=== PATIENT | female | born 1995 | race Caucasian/White ===

== ENCOUNTER 2019-04-10 11:59 | Inpatient (IN) ==
[2019-04-10] MEDS ORDERED: ceFAZolin 2,000 MG in PREMIX 1 EACH IV ONE (12:54)
[2019-04-10] MEDS ORDERED: CITRIC ACID/SODIUM CITRATE 30 ML UDCUP PO ONE (12:54)
[2019-04-10] MEDS ORDERED: FAMOTIDINE 20 MG/2 ML VIAL IV ONE (12:54)
[2019-04-10] MEDS ORDERED: OXYTOCIN/LR 20 UNIT/1,000 ML BAG IV ONE (12:57)
[2019-04-10] MEDS ORDERED: LACTATED RINGERS 1,000 ML IV SCH (13:00)
[2019-04-10 13:22] LABS: Basophils % 0.2 % (0.0-0.8); Eosinophils # 0.1 10*3/uL (0.0-0.87); Eosinophils % 0.5 % (0.00-10.9); Hematocrit 38.6 VOL% (35.7-47.0); Hemoglobin 11.6 GM/DL (12.0-16.0); Immature Granulocytes % 0.7 %; Immature Granulocytes Absolute 0.08 #; Lymphocytes # 1.2 10*3/uL (1.4-4.0); Lymphocytes % 11.2 % (21.3-54.2); Mean Corpuscular HGB Conc 30.1 GM/DL (32-36); Mean Platelet Volume 11.4 FL (9.6-12.0); Monocytes % 9.5 % (1.7-12.7); Neutrophils % 77.9 % (38.7-73.9); Platelet Count 259 T/CUMM (130-400); Red Blood Count 4.65 MC/CUMM (3.8-5.5); Red Cell Distribution Width 22.5 % (9.3-17.3)
[2019-04-10 13:28] LABS: INR 0.9; PT Patient Result 9.5 SECS; Partial Thromboplastin Time 26.4 SECS (0-40)
[2019-04-10 13:42] LABS: Apearance,Urine Slightly Hazy (Clear); Bacteria,Urine Many /HPF (Few); Bilirubin,Urine Negative (Negative); Blood, Urine Negative (Negative); Glucose,Urine (UA) Negative (Negative); Ketones,Urine Negative (Negative); Mucus,Urine Occasional /LPF (Occasional); Nitrite,Urine Negative (Negative); Protein,Urine Negative; RBC,Urine 4 /HPF (0-4); Squamous Epithelial Cell,Urine Occasional /HPF (0-10); Urine Color Yellow (Yellow); Urine Specific Gravity 1.012 (1.001-1.035); Urine Urobilinogen < 2.0 EU/DL (0.2-1.0); WBC,Urine 11 /HPF (0-6)
[2019-04-10 13:52] LABS: Albumin 2.8 G/DL (3.4-5.0); Bilirubin,Total 0.4 MG/DL (0.2-1.0); Osmolality,Calculated 269.8 MOS/KG (273-304); Total Protein 6.8 G/DL (6.4-8.3)
[2019-04-10 14:04] LABS: Calcium 8.8 MG/DL (8.5-10.1)
[2019-04-11 06:15] LABS: Basophils % 0.3 % (0.0-0.8); Eosinophils # 0.1 10*3/uL (0.0-0.87); Eosinophils % 1.2 % (0.00-10.9); Hematocrit 41.8 VOL% (35.7-47.0); Hemoglobin 12.4 GM/DL (12.0-16.0); Immature Granulocytes % 0.9 %; Immature Granulocytes Absolute 0.11 #; Lymphocytes # 2.4 10*3/uL (1.4-4.0); Lymphocytes % 19.7 % (21.3-54.2); Mean Corpuscular HGB Conc 29.7 GM/DL (32-36); Mean Corpuscular Volume 84.4 FL (87-102); Mean Platelet Volume 11.6 FL (9.6-12.0); Monocytes % 11.3 % (1.7-12.7); Neutrophils % 66.6 % (38.7-73.9); Platelet Count 342 T/CUMM (130-400); Red Blood Count 4.95 MC/CUMM (3.8-5.5); Red Cell Distribution Width 23.1 % (9.3-17.3)
[2019-04-11 06:32] LABS: Anisocytosis 1+; Hypochromasia Slight; Platelet Estimate Adequate
[2019-04-11] MEDS ORDERED: TRANEXAMIC ACID 1,000 MG/10 ML VIAL ONE (07:15)
[2019-04-11] MEDS ORDERED: miSOPROStol 200 MCG TABLET ONE (07:15)
[2019-04-11] MEDS ORDERED: CARBOPROST TROMETHAMINE 250 MCG/ML AMP IM ONE (07:16)
[2019-04-11] MEDS ORDERED: METHYLERGONOVINE 0.2 MG/1 ML AMP ONE (07:16)
[2019-04-11] MEDS ORDERED: OXYTOCIN/LR 20 UNIT/1,000 ML BAG IV ONE ×3 (07:16→10:33)
[2019-04-11] MEDS ORDERED: FAMOTIDINE 20 MG/2 ML VIAL IV ONE (07:30)
[2019-04-11] MEDS ORDERED: ceFAZolin 2,000 MG in PREMIX 1 EACH IV ONE (07:30)
[2019-04-11] MEDS ORDERED: CITRIC ACID/SODIUM CITRATE 30 ML UDCUP PO ONE (07:30)
[2019-04-11] MEDS ORDERED: LACTATED RINGERS 1,000 ML IV ONE (07:49)
[2019-04-11] MEDS ORDERED: MEASLES/MUMPS/RUBELLA VACCINE 0.5 ML VIAL SUBCUT ONE (10:33)
[2019-04-11] MEDS ORDERED: LANOLIN 50% CREAM 0.3 OZ TUBE TOP PRN (10:33)
[2019-04-11] MEDS ORDERED: DIPH/TET/ACEL PERT BOOSTER VACCINE 0.5 ML VIAL IM ONE (10:33)
[2019-04-11] MEDS ORDERED: ONDANSETRON 4 MG/2 ML VIAL IV PRN (10:33)
[2019-04-11] MEDS ORDERED: HYDROCORTISONE 2.5% RECTAL CREAM 30 GM TUBE TOP PRN (10:33)
[2019-04-11] MEDS ORDERED: ACETAMINOPHEN 325 MG TABLET PO PRN (10:33)
[2019-04-11] MEDS ORDERED: WITCH HAZEL PADS 100/JAR TOP PRN (10:33)
[2019-04-11] MEDS ORDERED: BISACODYL 10 MG SUPP RECTAL PRN (10:33)
[2019-04-11] MEDS ORDERED: oxyCODONE/ACETAMINOPHEN 5-325 MG TABLET PO PRN (10:33)
[2019-04-11] MEDS ORDERED: BENZOCAINE 20%/MENTHOL 0.5% SPRAY 56 GM CAN TOP PRN (10:33)
[2019-04-11] MEDS ORDERED: RHO(D) IMMUNE GLOBULIN 300 MCG SYRINGE IM ONE (10:33)
[2019-04-11 10:35] LABS: Apearance,Urine CLEAR (Clear); Bilirubin,Urine Negative (Negative); Blood, Urine Negative (Negative); Glucose,Urine (UA) 50 mg/dL (Negative); Ketones,Urine Negative (Negative); Nitrite,Urine Negative (Negative); Protein,Urine Negative; Urine Color Straw (Yellow); Urine Specific Gravity 1.005 (1.001-1.035); Urine Urobilinogen < 2.0 EU/DL (0.2-1.0); WBC,Urine <1 /HPF (0-6)
[2019-04-11] MEDS: PROMETHAZINE 25 MG/1 ML VIAL IM PRN ×2 (11:23→19:40)
[2019-04-11] MEDS ORDERED: ROPIVACAINE 0.5% 30 ML VIAL ONE (11:25)
[2019-04-11] MEDS ORDERED: BUPIVACAINE SPINAL 0.75% 2 ML AMP SPINAL ONE (11:25)
[2019-04-11] MEDS ORDERED: MORPHINE 10 MG/10 ML VIAL ONE (11:26)
[2019-04-11] MEDS ORDERED: ONDANSETRON 4 MG/2 ML VIAL ONE (11:26)
[2019-04-11] MEDS ORDERED: DEXAMETHASONE 4 MG/1 ML VIAL ONE (11:26)
[2019-04-11] MEDS ORDERED: KETAMINE 500 MG/10 ML VIAL ONE (11:26)
[2019-04-11] MEDS ORDERED: MIDAZOLAM 2 MG/2 ML VIAL ONE (11:26)
[2019-04-11] MEDS ORDERED: PHENYLEPHRINE 1 MG/10 ML SYRINGE IV ONE (11:27)
[2019-04-11] MEDS ORDERED: amLODIPine 10 MG TABLET PO ONE (14:03)
[2019-04-11] MEDS: ceFAZolin 1,000 MG in SYRINGE 1 EACH IV SCH (18:24)
[2019-04-11] MEDS: LACTATED RINGERS 1,000 ML IV SCH ×2 (18:53→18:54)
[2019-04-12] MEDS: LACTATED RINGERS 1,000 ML IV SCH (00:49)
[2019-04-12] MEDS: ceFAZolin 1,000 MG in SYRINGE 1 EACH IV SCH (02:09)
[2019-04-12] MEDS: DOCUSATE SODIUM 100 MG CAPSULE PO SCH ×2 (02:39→21:21)
[2019-04-12 04:28] LABS: Basophils % 0.1 % (0.0-0.8); Eosinophils % 0.1 % (0.00-10.9); Hematocrit 26.9 VOL% (35.7-47.0); Hemoglobin 7.9 GM/DL (12.0-16.0); Immature Granulocytes % 0.7 %; Immature Granulocytes Absolute 0.08 #; Lymphocytes # 1.7 10*3/uL (1.4-4.0); Lymphocytes % 15.8 % (21.3-54.2); Mean Corpuscular HGB Conc 29.4 GM/DL (32-36); Mean Corpuscular Volume 85.7 FL (87-102); Mean Platelet Volume 10.6 FL (9.6-12.0); Monocytes % 11.6 % (1.7-12.7); Neutrophils % 71.7 % (38.7-73.9); Platelet Count 215 T/CUMM (130-400); Red Blood Count 3.14 MC/CUMM (3.8-5.5); Red Cell Distribution Width 23.1 % (9.3-17.3); White Blood Count 10.8 T/CUMM (4-12)
[2019-04-12] MEDS: amLODIPine 10 MG TABLET PO SCH (09:32)
[2019-04-12] MEDS: FERROUS SULFATE 325 MG TABLET PO SCH ×2 (09:32→21:21)
[2019-04-12] MEDS: oxyCODONE/ACETAMINOPHEN 5-325 MG TABLET PO PRN ×2 (09:33→23:51)
[2019-04-12] MEDS: IBUPROFEN 800 MG TABLET PO PRN ×2 (09:33→18:23)
[2019-04-12] MEDS ORDERED: diphenhydrAMINE CAP 25 MG CAPSULE PO PRN (10:51)
[2019-04-13] MEDS: oxyCODONE/ACETAMINOPHEN 5-325 MG TABLET PO PRN ×2 (06:50→11:22)
[2019-04-13 07:16] VITALS: BP 141/83
[2019-04-13] MEDS ORDERED: MAGNESIUM HYDROXIDE SUSP 30 ML UDCUP PO PRN (07:59)
[2019-04-13] MEDS: amLODIPine 10 MG TABLET PO SCH (08:00)
[2019-04-13] MEDS: FERROUS SULFATE 325 MG TABLET PO SCH (08:02)
[2019-04-13] MEDS: DOCUSATE SODIUM 100 MG CAPSULE PO SCH (08:02)
[2019-04-13] MEDS ORDERED: FUROSEMIDE 40 MG TABLET PO ONE (08:32)
== END 2019-04-13 12:30 | disposition home or self-care (01) | DRG 787 ==
LOC: N.LDOUT 11:59 → N.LD 12:01 → N.OB 04-11 13:33
PROVIDERS: ADMIT Specialist; ATTEND Specialist
PROC: LDCSECT (ICD-10-PCS; 2019-04-11 09:20)

== ENCOUNTER 2021-11-06 05:23 | Inpatient (IN) ==
[2021-11-06] MEDS ORDERED: CITRIC ACID/SODIUM CITRATE 30 ML UDCUP PO ONE (06:07)
[2021-11-06] MEDS ORDERED: ceFAZolin 2,000 MG/50 ML DUPLEX IV ONE (06:07)
[2021-11-06] MEDS ORDERED: FAMOTIDINE 20 MG/2 ML VIAL IV ONE (06:07)
[2021-11-06] MEDS ORDERED: LACTATED RINGERS 1,000 ML IV ONE (06:09)
[2021-11-06 06:30] LABS: Basophils % 0.2 % (0.0-0.8); Eosinophils # 0.1 10*3/uL (0.0-0.87); Eosinophils % 0.6 % (0.00-10.9); Hematocrit 33.9 VOL% (35.7-47.0); Hemoglobin 10.8 GM/DL (12.0-16.0); Immature Granulocytes % 1.6 %; Lymphocytes # 1.9 10*3/uL (1.4-4.0); Lymphocytes % 15.4 % (21.3-54.2); Mean Corpuscular HGB Conc 31.9 GM/DL (32-36); Mean Corpuscular Volume 88.7 FL (87-102); Monocytes % 9.4 % (1.7-12.7); Neutrophils % 72.8 % (38.7-73.9); Platelet Count 287 T/CUMM (130-400); Red Blood Count 3.82 MC/CUMM (3.8-5.5); Red Cell Distribution Width 13.6 % (9.3-17.3); White Blood Count 12.5 T/CUMM (4-12)
[2021-11-06] MEDS ORDERED: LACTATED RINGERS 1,000 ML IV SCH (06:30)
[2021-11-06 06:35] LABS: INR 0.9; PT Patient Result 9.8 SECS (10.5-12.0); Partial Thromboplastin Time 22.7 SECS (23.8-32.1)
[2021-11-06] MEDS ORDERED: OXYTOCIN/LR 20 UNIT/1,000 ML BAG IV ONE ×4 (06:45→11:24)
[2021-11-06 06:59] LABS: Alanine Aminotransferase 14 U/L (13-56); Albumin 2.4 G/DL (3.4-5.0); Alkaline Phosphatase 126 U/L (45-117); Aspartate Amino Transferase 12 U/L (0-37); Bilirubin,Total < 0.39 MG/DL (0.20-1.00); Blood Urea Nitrogen 6 MG/DL (7-18); Calcium 8.8 MG/DL (8.5-10.1); Carbon Dioxide 20 MMOL/L (21-32); Estimated Glom Filtration Rate 144 ML/MIN; Glucose 80 MG/DL (74-106); Osmolality,Calculated 279.1 MOS/KG (273-304); Potassium 3.8 MMOL/L (3.5-5.1); Sodium 142 MMOL/L (136-145); Total Protein 6.2 G/DL (6.4-8.2)
[2021-11-06] MEDS ORDERED: SODIUM CHLORIDE 0.9% 0 ML IV ONE (07:06)
[2021-11-06] MEDS ORDERED: miSOPROStoL 200 MCG TABLET ONE (07:06)
[2021-11-06] MEDS ORDERED: TRANEXAMIC ACID 1,000 MG/10 ML VIAL ONE (07:06)
[2021-11-06] MEDS ORDERED: METHYLERGONOVINE 0.2 MG/1 ML AMP ONE (07:06)
[2021-11-06] MEDS ORDERED: CARBOPROST TROMETHAMINE 250 MCG/ML AMP IM ONE ×2 (07:07→08:05)
[2021-11-06] MEDS ORDERED: ONDANSETRON 4 MG/2 ML VIAL ONE (07:18)
[2021-11-06] MEDS ORDERED: BUPIVACAINE SPINAL 0.75% 2 ML AMP SPINAL ONE (07:18)
[2021-11-06] MEDS ORDERED: KETOROLAC 30 MG/1 ML VIAL ONE (07:19)
[2021-11-06] MEDS ORDERED: DEXAMETHASONE 4 MG/1 ML VIAL ONE ×2 (07:19)
[2021-11-06] MEDS ORDERED: ACETAMINOPHEN INJ 1,000 MG/100 ML VIAL IV ONE (07:19)
[2021-11-06] MEDS ORDERED: fentaNYL 100 MCG/2 ML VIAL ONE ×2 (07:26→08:22)
[2021-11-06] MEDS ORDERED: miSOPROStoL 200 MCG TABLET VAG ONE (08:05)
[2021-11-06] MEDS ORDERED: OXYTOCIN 10 UNIT/ML VIAL IV ONE (08:05)
[2021-11-06] MEDS ORDERED: OXYTOCIN 10 UNIT/ML VIAL ONE (08:06)
[2021-11-06 08:31] LABS: Bacteria,Urine Occasional /HPF (Few); Bilirubin,Urine Negative (Negative); Blood, Urine Negative (Negative); Glucose,Urine (UA) Negative (Negative); Ketones,Urine Negative (Negative); Mucus,Urine Occasional /LPF (Occasional); Nitrite,Urine Negative (Negative); Protein,Urine Negative; RBC,Urine <1 /HPF (0-4); Squamous Epithelial Cell,Urine Occasional /HPF (0-10); Urine Appearance CLEAR (Clear); Urine Color Straw (Yellow); Urine Specific Gravity 1.008 (1.001-1.035); Urine Urobilinogen < 2.0 EU/DL (0.2-1.0)
[2021-11-06 08:35] LABS: Cord Arterial Blood HCO3 23.6 MMOL/L
[2021-11-06 08:38] LABS: Cord Venous Blood HCO3 22.9 MMOL/L; Cord Venous Blood PCO2 40.3 MMHG; Cord Venous Blood PO2 31.8
[2021-11-06] MEDS ORDERED: ACETAMINOPHEN 500 MG TABLET PO SCH (09:00)
[2021-11-06] MEDS ORDERED: MEASLES/MUMPS/RUBELLA VACCINE 0.5 ML VIAL SUBCUT ONE (11:24)
[2021-11-06] MEDS ORDERED: BISACODYL 10 MG SUPP RECTAL PRN (11:24)
[2021-11-06] MEDS ORDERED: RHO(D) IMMUNE GLOBULIN 300 MCG SYRINGE IM ONE (11:24)
[2021-11-06] MEDS ORDERED: WITCH HAZEL PADS 100/JAR TOP PRN (11:24)
[2021-11-06] MEDS ORDERED: oxyCODONE/ACETAMINOPHEN 5-325 MG TABLET PO PRN (11:24)
[2021-11-06] MEDS ORDERED: LANOLIN 50% CREAM 0.3 OZ TUBE TOP PRN (11:24)
[2021-11-06] MEDS ORDERED: ACETAMINOPHEN 325 MG TABLET PO PRN (11:24)
[2021-11-06] MEDS ORDERED: ONDANSETRON 4 MG/2 ML VIAL IV PRN (11:24)
[2021-11-06] MEDS ORDERED: BENZOCAINE 20%/MENTHOL 0.5% SPRAY 56 GM CAN TOP PRN (11:24)
[2021-11-06] MEDS ORDERED: DIPH/TET/ACEL PERT BOOSTER VACCINE 0.5 ML VIAL IM ONE (11:24)
[2021-11-06] MEDS ORDERED: HYDROCORTISONE 2.5% RECTAL CREAM 30 GM TUBE TOP PRN (11:24)
[2021-11-06] MEDS ORDERED: IBUPROFEN 800 MG TABLET PO PRN (11:24)
[2021-11-06] MEDS: oxyCODONE/ACETAMINOPHEN 5-325 MG TABLET PO PRN (12:42)
[2021-11-06] MEDS: KETOROLAC 30 MG/1 ML VIAL IV SCH ×2 (14:18→19:59)
[2021-11-06] MEDS ORDERED: diphenhydrAMINE 50 MG/1 ML VIAL IV PRN (19:49)
[2021-11-06] MEDS: ACETAMINOPHEN 500 MG TABLET PO SCH (20:40)
[2021-11-07] MEDS: KETOROLAC 30 MG/1 ML VIAL IV SCH (02:20)
[2021-11-07] MEDS: DOCUSATE SODIUM 100 MG CAPSULE PO SCH ×3 (02:50→21:02)
[2021-11-07] MEDS: ACETAMINOPHEN 500 MG TABLET PO SCH (02:51)
[2021-11-07] MEDS: oxyCODONE/ACETAMINOPHEN 5-325 MG TABLET PO PRN ×3 (04:06→19:04)
[2021-11-07 07:24] LABS: Basophils % 0.1 % (0.0-0.8); Eosinophils # 0.1 10*3/uL (0.0-0.87); Eosinophils % 0.6 % (0.00-10.9); Hematocrit 29.7 VOL% (35.7-47.0); Hemoglobin 9.2 GM/DL (12.0-16.0); Immature Granulocytes % 1.4 %; Immature Granulocytes Absolute 0.17 #; Lymphocytes # 1.8 10*3/uL (1.4-4.0); Lymphocytes % 14.4 % (21.3-54.2); Mean Platelet Volume 11.3 FL (9.6-12.0); Neutrophils % 74.5 % (38.7-73.9); Platelet Count 239 T/CUMM (130-400); Red Cell Distribution Width 13.6 % (9.3-17.3); White Blood Count 12.4 T/CUMM (4-12)
[2021-11-07] MEDS: guaiFENesin 200 MG/10 ML UDCUP PO PRN (16:39)
[2021-11-08] MEDS: oxyCODONE/ACETAMINOPHEN 5-325 MG TABLET PO PRN (06:12)
[2021-11-08] MEDS: DOCUSATE SODIUM 100 MG CAPSULE PO SCH (09:20)
[2021-11-08] MEDS: guaiFENesin 200 MG/10 ML UDCUP PO PRN (09:20)
[2021-11-08 10:26] VITALS: BP 144/82
== END 2021-11-08 12:35 | disposition home or self-care (01) | DRG 788 ==
LOC: N.LD 05:23 → N.OB 11:27
PROVIDERS: ADMIT Specialist; ATTEND Specialist
PROC: LDCSECT (ICD-10-PCS; 2021-11-06 07:20)